=== PATIENT | female | born 1945 | race Caucasian/White ===

== ENCOUNTER → 2017-12-19 13:10 | Outpatient (CLI) | payer MEDICARE, SELFPAY ==
[2017-12-19 13:31] LABS: Hemoglobin 11.8 g/dl (12.0-15.0); Mean Corp Hgb Conc 31.9 g/gl (32-36); Mean Corpuscular Hgb 29.1 pg (27.0-32.0); Mean Corpuscular Volume 91.1 fL (81-99); Mean Platelet Vol. 9.5 fl (6.2-12.0); Platelet Count 348 K/mm3 (150-450); RBC Distribution Width CV 13.7 % (11.6-14.6); RBC Distribution Width SD 45.6 fl (35.1-43.9); Red Blood Count 4.06 M/mm3 (4.2-5.4); White Blood Count 6.6 K/mm3 (4.4-11.0)
[2017-12-19 13:35] LABS: Scan Indicated on CBC? Y/N NO
[2017-12-19 13:57] LABS: AST(SGOT) 20 U/L (15-37); Alanine Aminotransfer ALT/SGPT 18 U/L (13-56); Albumin, Serum 3.7 g/dL (3.2-5.0); Alkaline Phosphatase 58 U/L (45-117); Bilirubin, Direct < 0.05 mg/dL (0.00-0.30); Globulin 4.1 g/dL (2.2-4.2); Protein, Total 7.8 g/dL (6.4-8.2)
== END ==
PROVIDERS: Family Provider Family Medicine; PCP Family Medicine; Visit Provider Internal Medicine Pulmonary Disease
DX: J45.909 Unspecified asthma, uncomplicated (principal); R05 Cough
CPT/HCPCS: 36415; 80076; 85027

== ENCOUNTER 2021-09-02 14:26 | Outpatient (CLI) | payer MEDICARE, SELFPAY ==
[2021-09-02 14:56] LABS: Hematocrit 35.8 % (37-47); Mean Corp Hgb Conc 33.5 g/dL (32-36); Mean Corpuscular Hgb 31.3 pg (27.0-32.0); Mean Corpuscular Volume 93.2 fL (81-99); Mean Platelet Vol. 9.6 fl (6.2-12.0); Platelet Count 323 K/mm3 (150-450); RBC Distribution Width CV 12.7 % (11.6-14.6); RBC Distribution Width SD 43.6 fl (35.1-43.9); Red Blood Count 3.84 M/mm3 (4.2-5.4); White Blood Count 6.4 K/mm3 (4.4-11.0)
== END 2021-09-02 23:59 | disposition short-term general hospital (02) ==
LOC: LAB 14:31
PROVIDERS: PCP Family Medicine; Visit Provider Internal Medicine Pulmonary Disease
DX: J45.909 Unspecified asthma, uncomplicated (principal); Z86.2 Personal history of diseases of the blood and blood-forming organs and certain disorders involving the immune mechanism
CPT/HCPCS: 36415; 85027

== ENCOUNTER 2023-11-20 14:41 | Emergency (ER) | payer MEDICARE, SELFPAY ==
[2023-11-20 14:41] VITALS: BP 138/81; PULSE 79; RESP 18; TEMP 36.1; O2SAT 100; BMI 25.0
[2023-11-20 14:43] VITALS: BP 138/81; PULSE 79; RESP 19; TEMP 36.1; O2SAT 100
[2023-11-20 16:00] VITALS: BP 124/76; PULSE 82; RESP 16; TEMP 36.9; O2SAT 98
[2023-11-20 16:34] LABS: Bacteria 0 SEEN /hpf (None Seen); Mucous, Urine 0 SEEN /hpf (<or=2+); Red Blood Cells-Urine 0 SEEN /hpf (0-5); Squamous Epithelial Cells - UA 0 SEEN /hpf (5-10); White Blood Cells 0 SEEN /hpf (0-5)
[2023-11-20 16:39] LABS: Color, Urine Straw (Yellow); Glucose, Dipstick Normal (Normal); Ketone-Dipstick Negative (Negative); Leukocyte Esterase-Dipstick Negative /ul (Negative); Nitrite-Dipstick Negative (Negative); Occult Blood-Urine 10 /ul (Negative); Protein-Dipstick Negative (Negative); Specific Gravity, Urine 1.015 (1.002-1.030); Urine Bilirubin Dipstick Negative (Negative); Urine Clarity Clear (Clear); Urine Urobilinogen Normal (Normal); Urine pH 6.5 (5.0 - 8.0)
[2023-11-20] MEDS: 0.9% Normal Saline (1000mL) 1,000 ML 1000 ML IV (16:39)
[2023-11-20] MEDS: Dicyclomine 10 MG Capsule 20 MG PO (16:40)
[2023-11-20 16:49] LABS: Basophil# 0.05 X10^3/uL; Basophil% 0.4 % (0-1); Eosinophil# 0.04 X10^3/uL; Eosinophils% 0.4 % (0-5); Hematocrit 35.3 % (37-47); Hemoglobin 11.5 g/dL (12.0-15.0); Lymphocyte % 17.9 % (19-41); Mean Corp Hgb Conc 32.6 g/dL (32-36); Mean Corpuscular Hgb 30.1 pg (27.0-32.0); Mean Corpuscular Volume 92.4 fL (81-99); Mean Platelet Vol. 9.6 fl (6.2-12.0); Monocyte# 1.06 X10^3/uL; Monocyte% 9.5 % (0-10); NRBC Flagged by Analyzer 0 % (0-5); Neutrophil # 7.95 X10^3/uL (2.7-7.7); Platelet Count 362 K/mm3 (150-450); RBC Distribution Width CV 12.8 % (11.6-14.6); RBC Distribution Width SD 43.1 fl (35.1-43.9); Red Blood Count 3.82 M/mm3 (4.2-5.4); White Blood Count 11.2 K/mm3 (4.4-11.0)
[2023-11-20 17:00] VITALS: BP 133/74; PULSE 86; RESP 16; TEMP 36.6; O2SAT 98
[2023-11-20 17:07] LABS: ALB/GLOB Ratio 0.8 RATIO (0.9-2.4); AST(SGOT) 23 U/L (15-37); Alanine Aminotransfer ALT/SGPT 57 U/L (13-56); Alkaline Phosphatase 62 U/L (45-117); Anion Gap 4 (5-15); BUN 11 mg/dL (7-18); BUN/Creat Ratio 10.2 RATIO (10-20); Calcium,Total 9.7 mg/dL (8.5-10.1); Chloride 98 mmol/L (98-107); Creatinine, Serum 1.08 mg/dL (0.55-1.02); EST Glomerular Filtration Rate 52 mL/min (>60); Est Glom Filt Rate - Afr Amer 63 mL/min (>60); Estimated Creatinine Clearance 37.83 ml/min; Globulin 3.9 g/dL (2.2-4.2); Glucose 122 mg/dL (74-106); Potassium 3.8 mmol/L (3.5-5.1); Protein, Total 6.9 g/dL (6.4-8.2); Sodium Level 135 mmol/L (136-145)
--- NOTE | 2023-11-20 17:13 | EDS_ITS ---
HPI <ANA M Fritz - Last Filed: 11/20/23 18:22> History of Present Illness Chief Complaint: Diarrhea Narrative Narrative: Patient is a 78-year-old female with history of hypertension hyperlipidemia who presents to the emergency department with complaints of lower abdominal pain, diarrhea, 1 episode of vomiting. Patient states has been ongoing for 1 week. Patient states at nighttime, she is getting up every hour, she has had a couple accidents because it would come out so fast. Patient states she did see her PCP, at that time, I told her to push Pedialyte and to maintain hydration. She was negative for any influenza COVID RSV. Patient states today, there might have been some amount of blood however she does have hemorrhoids. Patient was told to come to the emergency department [facility] <ANA M Fritz - Last Filed: 11/20/23 18:22> [facility] Home Medications dicyclomine 20 mg tablet 20 mg PO TID #20 tabs 11/20/23 [Rx Last Taken Unknown] Allergy/AdvReac Type Severity Reaction Status Date / Time alendronate sodium Allergy Intermediate Palpitation Verified 11/20/23 14:43 [From [employer]] s Social History Smoking Status: Never smoker ROS <ANA M Fritz - Last Filed: 11/20/23 18:22> ROS ED ROS Narrative Constitutional: Negative for fever, chills, weight loss, weakness Eyes: Negative for vision loss, vision change, double vision ENT: Negative for any sore throat, ear pain, congestion Cardiovascular: Negative for any chest pain, tightness, palpitations Respiratory: Negative for any cough, sputum production, hemoptysis, dyspnea, dyspnea on exertion, orthopnea Gastrointestinal: Negative for any abdominal pain, constipation, blood in stool, blood in vomit. Positive for nausea vomiting, diarrhea : Negative for any urinary frequency, dysuria, retention, blood in urine Muscle skeletal: Negative for any neck pain, back pain Neurological: Negative for any headache, syncope, dizziness Skin: Negative for any rashes, itching, abrasions, lacerations Psychiatric: Negative for any depression, anxiety, stress, suicidal ideation, homicidal ideation Hematologic: Negative for any excessive bruising, easy bleeding EXAM <ANA M Fritz - Last Filed: 11/20/23 18:22> Physical Exam Narrative Exam Narrative: Vital signs reviewed. HEET: Head normocephalic atraumatic, TMs clear bilaterally. Posterior pharynx is clear, moist mucous membranes. Nares clear bilaterally. Neck: Supple with no lymphadenopathy or tenderness. No signs of meningismus. Cardiac: Regular rate and rhythm no murmurs gallops or rubs, equal peripheral pulses bilaterally. Respiratory: Lungs clear to auscultation bilaterally. No chest tenderness. Abdomen: Soft, nontender, nondistended. No abdominal bruit or pulsatile masses. No hepatosplenomegaly Extremities: No peripheral edema, no signs of gross trauma or deformity. Active full range of motion of all extremities. Neuro: Cranial nerves II through XII intact, no focal neurological deficits. Skin: Clean dry and intact with no rash, purpura, petechiae, vesicles or pustules. Backs/flank: No CVA tenderness, no midline spinal tenderness, no deformity. Psych: Normal mood and affect. No SI, HI or acute psychosis. Const Vital Signs: 11/20/23 14:41 11/20/23 14:43 11/20/23 16:00 Temperature 97 F L 97 F L 98.4 F Temperature Source Temporal Temporal Oral Pulse Rate 79 79 82 Respiratory Rate 18 19 H 16 Blood Pressure 138/81 H 138/81 H 124/76 H Blood Pressure Mean 100 100 92 Pulse Ox 100 100 98 Oxygen Delivery Method Room Air Room Air Room Air 11/20/23 17:00 11/20/23 18:00 11/20/23 18:30 Temperature 97.8 F 98.2 F 98.5 F Temperature Source Oral Oral Pulse Rate 86 82 78 Respiratory Rate 16 16 16 Blood Pressure 133/74 H 125/72 H 112/80 Blood Pressure Mean 93 89 90 Pulse Ox 98 97 98 Oxygen Delivery Method Room Air Room Air Positive well nourished and well developed General Appearance ED: well developed <Dr. Gary Luciano, DO - Last Filed: 11/20/23 19:08> Physical Exam Const Vital Signs: 11/20/23 14:41 11/20/23 14:43 11/20/23 16:00 Temperature 97 F L 97 F L 98.4 F Temperature Source Temporal Temporal Oral Pulse Rate 79 79 82 Respiratory Rate 18 19 H 16 Blood Pressure 138/81 H 138/81 H 124/76 H Blood Pressure Mean 100 100 92 Pulse Ox 100 100 98 Oxygen Delivery Method Room Air Room Air Room Air 11/20/23 17:00 11/20/23 18:00 11/20/23 18:30 Temperature 97.8 F 98.2 F 98.5 F Temperature Source Oral Oral Pulse Rate 86 82 78 Respiratory Rate 16 16 16 Blood Pressure 133/74 H 125/72 H 112/80 Blood Pressure Mean 93 89 90 Pulse Ox 98 97 98 Oxygen Delivery Method Room Air Room Air [facility] <ANA M Fritz - Last Filed: 11/20/23 18:22> [facility] Lab Data Labs: Laboratory Results - last 24 hr 11/20/23 11/20/23 16:08 16:43 WBC 11.2 H RBC 3.82 L Hgb 11.5 L Hct 35.3 L MCV 92.4 MCH 30.1 MCHC 32.6 RDW Std Deviation 43.1 RDW Coeff of Kylah 12.8 Plt Count 362 MPV 9.6 Immature Gran % (Auto) 0.800 Neut % (Auto) 71.0 H Lymph % (Auto) 17.9 L Centre % (Auto) 9.5 Eos % (Auto) 0.4 Baso % (Auto) 0.4 Absolute Neuts (auto) 8.0 H Absolute Lymphs (auto) 2.00 Nucleated RBC % 0 Sodium 135 L Potassium 3.8 Chloride 98 Carbon Dioxide 33.0 H Anion Gap 4 L BUN 11 Creatinine 1.08 H Estim Creat Clear Calc 37.83 Est GFR (MDRD) Af Amer 63 Est GFR (MDRD) Non-Af 52 L BUN/Creatinine Ratio 10.2 Glucose 122 H Calcium 9.7 Total Bilirubin 0.40 AST 23 ALT 57 H Alkaline Phosphatase 62 Total Protein 6.9 Albumin 3.0 L Globulin 3.9 Albumin/Globulin Ratio 0.8 L Urine Color Straw Urine Clarity Clear Urine pH 6.5 Ur Specific Vaughn 1.015 Urine Protein Negative Urine Glucose (UA) Normal Urine Ketones Negative Urine Occult Blood 10 H Urine Nitrite Negative Urine Bilirubin Negative Urine Urobilinogen Normal Ur Leukocyte Esterase Negative Urine RBC 0 SEEN Urine WBC 0 SEEN Ur Squamous Epith Cells 0 SEEN Urine Bacteria 0 SEEN Urine Mucus 0 SEEN Treatment and Re-Evaluation :: Patient appears to be in no obvious respiratory distress, patient's vital signs are stable. Patient presents to the emergency department with complaints of diarrhea, nausea and vomiting for 1 week. Patient will receive a generalized workup. Patient be worked up concerning for any gastroenteritis, bowel obstruction, viral-like diarrhea, bacterial diarrhea. Patient has no history of being on any antibiotics. Patient's laboratory values show slight leukocytosis with a white blood count of 11.2, patient's hemoglobin is 11.5, this appears baseline for the patient. Chemistry shows sodium of 135,, dioxide of 33, anion gap of 4 creatinine 1.08, liver function tests are unremarkable. I did order stool sample to test for any viral or C. difficile. Patient received IV fluids. Patient received p.o. Bentyl, patient will be reevaluated. On reevaluation, the patient was feeling better. The patient is stable for discharge. Patient appears generally well, she is happy with the plan of care, she was given strict return precaution. She will be given Bentyl for home for stomach cramping. She is instructed to maintain hydration. All questions were answered, patient stable for discharge. <Dr. Gary Luciano, DO - Last Filed: 11/20/23 19:08> [facility] Narrative Medical decision making narrative: Patient appears to be in no obvious respiratory distress, patient's vital signs are stable. Patient presents to the emergency department with complaints of diarrhea, nausea and vomiting for 1 week. Patient will receive a generalized workup. Patient be worked up concerning for any gastroenteritis, bowel obstruction, viral-like diarrhea, bacterial diarrhea. Patient has no history of being on any antibiotics. Patient's laboratory values show slight leukocytosis with a white blood count of 11.2, patient's hemoglobin is 11.5, this appears baseline for the patient. Chemistry shows sodium of 135,, dioxide of 33, anion gap of 4 creatinine 1.08, liver function tests are unremarkable. I did order stool sample to test for any viral or C. difficile. Patient received IV fluids. Patient received p.o. Bentyl, patient will be reevaluated. On reevaluation, the patient was feeling better. The patient is stable for discharge. Patient appears generally well, she is happy with the plan of care, she was given strict return precaution. She will be given Bentyl for home for stomach cramping. She is instructed to maintain hydration. All questions were answered, patient stable for discharge. This patient was seen with a PA/SOCK KNITTING MACHINE OPERATOR Individually assessed they patient including history and physical. I have reviewed everything on the chart that is available and agree with the documentation provided by the PA/SOCK KNITTING MACHINE OPERATOR including discussion about the assessment, treatment plan, discussion, and return precautions. Well- appearing 78-year-old female with complaints of diarrhea as well as nausea and vomiting. The nausea vomiting is cleared up but the diarrhea is been persistent. It is now starting to clear up as well and she noted some blood in her stool vital signs are stable and she is afebrile. Blood work overall reassuring. Patient feeling better on reevaluation after treatment with Bentyl and IV fluids. We are unable to obtain stool studies today because the patient was able to give a sample. Patient has Zofran at home. Recommended she follow- up with the PCP outpatient. Return cautions discussed. Impression: 1. Nausea/vomiting 2. Diarrhea 3. GI bleed stable. Lab Data Attestation: I reviewed the patient's lab results. Labs: Laboratory Results - last 24 hr 11/20/23 11/20/23 16:08 16:43 WBC 11.2 H RBC 3.82 L Hgb 11.5 L Hct 35.3 L MCV 92.4 MCH 30.1 MCHC 32.6 RDW Std Deviation 43.1 RDW Coeff of Kylah 12.8 Plt Count 362 MPV 9.6 Immature Gran % (Auto) 0.800 Neut % (Auto) 71.0 H Lymph % (Auto) 17.9 L Centre % (Auto) 9.5 Eos % (Auto) 0.4 Baso % (Auto) 0.4 Absolute Neuts (auto) 8.0 H Absolute Lymphs (auto) 2.00 Nucleated RBC % 0 Sodium 135 L Potassium 3.8 Chloride 98 Carbon Dioxide 33.0 H Anion Gap 4 L BUN 11 Creatinine 1.08 H Estim Creat Clear Calc 37.83 Est GFR (MDRD) Af Amer 63 Est GFR (MDRD) Non-Af 52 L BUN/Creatinine Ratio 10.2 Glucose 122 H Calcium 9.7 Total Bilirubin 0.40 AST 23 ALT 57 H Alkaline Phosphatase 62 Total Protein 6.9 Albumin 3.0 L Globulin 3.9 Albumin/Globulin Ratio 0.8 L Urine Color Straw Urine Clarity Clear Urine pH 6.5 Ur Specific Vaughn 1.015 Urine Protein Negative Urine Glucose (UA) Normal Urine Ketones Negative Urine Occult Blood 10 H Urine Nitrite Negative Urine Bilirubin Negative Urine Urobilinogen Normal Ur Leukocyte Esterase Negative Urine RBC 0 SEEN Urine WBC 0 SEEN Ur Squamous Epith Cells 0 SEEN Urine Bacteria 0 SEEN Urine Mucus 0 SEEN Discharge Plan Triage Chief Complaint: Diarrhea ED Midlevel Provider: Paras Steele ED Provider: Gary Luciano Dx/Rx/DC Orders Clinical Impression: Diarrhea Instructions: ED Diarrhea, Unknown Cause Prescriptions: New dicyclomine 20 mg tablet 20 mg PO TID Qty: 20 0RF Primary Care Provider: Avel Knapp Referrals: Avel Knapp MD [Primary Care Provider] - Activity Restrictions/Additional Instructions: Please maintain hydration. Use the nausea medicine. Advance her diet as tolerated. I did provide you with Bentyl for stomach cramping. Disposition Disposition: Home, Self Care Discharge Date/Time: 11/20/23 18:31
[2023-11-20 18:00] VITALS: BP 125/72; PULSE 82; RESP 16; TEMP 36.8; O2SAT 97
[2023-11-20 18:30] VITALS: BP 112/80; PULSE 78; RESP 16; TEMP 36.9; O2SAT 98
== END 2023-11-20 18:31 | disposition home or self-care (01) ==
PROVIDERS: Nurse Practitioner; Emergency Provider Student in an Organized Health Care Education/Training Program; PCP Family Medicine; Visit Provider Student in an Organized Health Care Education/Training Program
DX: R19.7 Diarrhea, unspecified (principal); K92.2 Gastrointestinal hemorrhage, unspecified; K64.9 Unspecified hemorrhoids; R11.2 Nausea with vomiting, unspecified; R10.9 Unspecified abdominal pain; I10 Essential (primary) hypertension; E78.5 Hyperlipidemia, unspecified
CPT/HCPCS: 80053; 81001; 85025; 96360; 96361; 99283; J7030